=== PATIENT | female | born 1990 | race Caucasian/White ===

== ENCOUNTER → 2017-11-14 19:18 | Outpatient (CLI) | payer SELFPAY | PROVIDERS: Visit Provider Obstetrics & Gynecology | DX: L02.91 Cutaneous abscess, unspecified (principal) | CPT/HCPCS: 87070; 87075; 87077; 87186; 87205 ==

== ENCOUNTER 2025-02-12 18:28 | Emergency (ER) | payer SELFPAY ==
[2025-02-12 18:29] VITALS: BP 120/72; PULSE 71; RESP 16; TEMP 36.8; O2SAT 99; BMI 31.6
[2025-02-12 19:04] VITALS: O2SAT 98
--- NOTE | 2025-02-12 19:04 | EKG12_ITS ---
Test Reason : CP Blood Pressure : */* mmHG Vent. Rate : 66 BPM Atrial Rate : 66 BPM P-R Int : 152 ms QRS Dur : 82 ms QT Int : 370 ms P-R-T Axes : 43 3 24 degrees QTcB Int : 387 ms Normal sinus rhythm Normal ECG Confirmed by ERICKSON DUBOIS, DAT ([id number]), slot editor NEGRA TOUSSAINT ([id number]) on 02/13/2025 1:26:55 PM Referred By: Leonel Horner Confirmed By: DAT ALMENDRAEZ MD
--- NOTE | 2025-02-12 19:10 | RAD_ITS ---
PROCEDURE: CHEST PA AND LATERAL 02/12/2025 REASON FOR EXAM: CHEST PAIN TECHNIQUE: Frontal and lateral views of the chest. FINDINGS: Hardware: None Heart: The heart size is normal. Mediastinum: The mediastinal contour is unremarkable. Lungs: The lungs are clear. Bones: The bones are unremarkable. RAD/Chest PA and Lateral IMPRESSION: NO ACUTE FINDINGS. Reading Location: [id number]
--- NOTE | 2025-02-12 19:20 | EX.ED.DYSGE1 ---
HPI History of Present Illness Chief Complaint: Chest Pain Narrative Narrative: Patient is a 35-year-old female past medical history anxiety, depression who presents to the emergency department chief complaint chest pain. Patient states that she was sitting reading a book when all of a sudden she developed severe chest pain rating to her back prompting her to call EMS to have her brought here for further evaluation management. Patient states that this has been going off and on for the past month but not to this extent. Patient denies recent travel history denies use of blood clots. [facility] Medical History Anxiety and depression Home Medications ?Medication ?Instructions ?Recorded ?Last Taken ?Type escitalopram oxalate 20 mg tablet 20 mg PO DAILY 02/12/25 02/12/25 History (Lexapro) Allergy/AdvReac Type Severity Reaction Status Date / Time pineapple Allergy Severe Hives Verified 02/12/25 18:35 Penicillins (PCN) Allergy Hives Verified 02/12/25 18:35 Family History Mother Breast cancer Social History household members: spouse, family and children housing: house Smoking Status: Never smoker alcohol intake: current details: social substance use type: does not use caffeine: Yes frequency: 5-6 times per week seatbelt use: always do you feel safe at home: Yes additional social history: - Unemployed [employer] [facility] ROS ED ROS Narrative Constitutional: Denies fever, chills, headaches Cardiovascular: Complains of chest pain as noted above Respiratory: Denies coughing wheezing shortness of breath Abdomen: Denies abdominal pain nausea vomit diarrhea : Denies urinary symptoms Neurological: Denies numbness, weakness, tingling Musculoskeletal: Complains of chest pain rating to her back Skin: Denies rashes or lesions EXAM Physical Exam Narrative Exam Narrative: General: Patient lying in bed rest comfortably did not appear to be in acute distress Head: Atraumatic, normocephalic Eyes: PERRL bilaterally, EOMI bilateral, no conjunctival injection noted Neck: Soft, supple, trachea midline Cardiovascular: Regular rate and rhythm Respiratory: Clear to auscultation bilaterally Abdomen: Soft, nondistended, nontender to palpation Extremities: Radial pulses +2/4 in the bilateral extremities, +5/5 strength noted in the bilateral upper and lower extremities, no pedal edema exam Neurological: Patient following commands knew that she was at [facility] the year is 2024. Sensation grossly intact Skin: Warm, dry, intact no rashes or lesions noted Const Vital Signs: 02/12/25 18:29 02/12/25 18:32 02/12/25 19:04 Temperature 98.3 F Temperature Source Temporal Pulse Rate 71 Respiratory Rate 16 Respiratory Effort Normal Non-Labored Blood Pressure 120/72 Blood Pressure Mean 88 Pulse Ox 99 98 Oxygen Delivery Method Room Air Room Air 02/12/25 19:28 02/12/25 20:00 02/12/25 21:00 Temperature Temperature Source Pulse Rate 69 78 74 Respiratory Rate 19 H 17 17 Respiratory Effort Blood Pressure 93/71 97/63 100/64 Blood Pressure Mean 78 74 76 Pulse Ox 98 98 98 Oxygen Delivery Method Room Air Room Air Room Air MDM MDM MDM Narrative Medical decision making narrative: Patient is a 35-year-old female who presented to the emergency department with a chief complaint of sudden onset of chest pain while reading a book. On the differential diagnosis includes but not limited to ACS, pneumonia, pneumothorax. Once workup is obtained reviewed she will be reevaluated. [place] Score (Revised) for Pulmonary Embolism from [email or web address] on 02/12/2025 All calculations should be rechecked by clinician prior to use RESULT SUMMARY: 0 points Low risk group: 7-9% incidence of PE from several studies. INPUTS: Age >65 ?> 0 = No Previous DVT or PE ?> 0 = No Surgery (under general anesthesia) or lower limb fracture in past month ?> 0 = No Active malignant condition ?> 0 = No Unilateral lower limb pain ?> 0 = No Hemoptysis ?> 0 = No Heart rate ?> 0 = < 75 Pain on lower limb palpation and unilateral edema ?> 0 = No Patient CBC was reviewed showed no evidence leukocytosis white blood count normal 9.4, he was stable 13.4, platelet count was noted be normal at 290. Patient sodium was 140, potassium normal 3.8, creatinine normal at 0.89. Patient's troponin was normal at less than 6 with a delta troponin obtained less than 6. Patient's EKG was reviewed as well which showed sinus rhythm with a rate of 66 bpm. Patient's test was negative. Patient chest x-ray reviewed by myself by radiology which showed no acute cardiopulmonary processes. Reevaluation patient she is still feeling back to her baseline and would like to go home at this point in time. She is vies follow-up with her primary care physician outpatient setting return with worsening symptoms or concerns. She is agreeable this plan all question concerns answered she was discharged home in stable condition. Lab Data Labs: Laboratory Results - last 24 hr 02/12/25 02/12/25 18:32 20:53 WBC 9.4 RBC 4.37 Hgb 13.4 Hct 38.5 MCV 88.1 MCH 30.7 MCHC 34.8 RDW Std Deviation 39.6 RDW Coeff of Ernesto 12.2 Plt Count 290 MPV 9.4 Immature Gran % (Auto) 0.100 Neut % (Auto) 55.5 Lymph % (Auto) 31.8 [place] % (Auto) 6.8 Eos % (Auto) 5.1 H Baso % (Auto) 0.7 Absolute Neuts (auto) 5.2 Absolute Lymphs (auto) 2.97 Nucleated RBC % 0 Sodium 140 Potassium 3.8 Chloride 104 Carbon Dioxide 23.3 Anion Gap 12 BUN 12 Creatinine 0.89 Estim Creat Clear Calc 84.84 Est GFR (MDRD) Non-Af 86 BUN/Creatinine Ratio 13.2 Glucose 87 Calcium 9.3 Troponin T High Sens < 6 Troponin T Hi Sens 2 Hr < 6 Serum , Qual NEGATIVE Radiography Diagnostic Testing: Clinical Impression(s) from Imaging Studies Chest X-Ray 02/12/25 19:10 IMPRESSION: NO ACUTE FINDINGS. Reading [facility] Dis[facility] Triage Chief Complaint: Chest Pain ED Provider: Leonel Horner Dx/Rx/DC Orders Clinical Impression: Chest pain Prescriptions: No Action escitalopram oxalate [Lexapro] 20 mg tablet 20 mg PO DAILY Primary Care Provider: Care Physician,No Primary Referrals: Care Physician,No Primary [Primary Care Provider] - Bennett Vickers MD [Med Staff - Windows Application Administrator] - Activity Restrictions/Additional Instructions: Your x-ray was normal your blood work did not show any acute findings. Follow-up with a primary care physician return with worsening symptoms or any other concerns. Print Language: [place] Disposition Disposition: Home, Self Care
[2025-02-12 19:28] VITALS: BP 93/71; PULSE 69; RESP 19; O2SAT 98
[2025-02-12 19:33] LABS: Absolute Lymphocyte Count 2.97 X10^3/uL (0.83-4.51); Absolute Neutrophil Count 5.2 X10^3/uL (2.0-7.7); Basophil# 0.07 X10^3/uL; Basophil% 0.7 % (0-1); Eosinophil# 0.48 X10^3/uL; Eosinophils% 5.1 % (0-5); Hematocrit 38.5 % (37-47); Hemoglobin 13.4 g/dL (12.0-15.0); Lymphocyte # 2.97 X10^3/ul (0.83-4.51); Lymphocyte % 31.8 % (19-41); Mean Corp Hgb Conc 34.8 g/dL (32-36); Mean Corpuscular Hgb 30.7 pg (27.0-32.0); Mean Corpuscular Volume 88.1 fL (81-99); Mean Platelet Vol. 9.4 fl (6.2-12.0); Monocyte# 0.64 X10^3/uL; Monocyte% 6.8 % (0-10); NRBC Flagged by Analyzer 0 % (0-5); Neutrophil # 5.18 X10^3/uL (2.7-7.7); Neutrophil % 55.5 % (47-70); Platelet Count 290 K/mm3 (150-450); RBC Distribution Width CV 12.2 % (11.6-14.6); RBC Distribution Width SD 39.6 fl (35.1-43.9); Red Blood Count 4.37 M/mm3 (4.2-5.4); White Blood Count 9.4 K/mm3 (4.4-11.0)
[2025-02-12 19:43] LABS: Internal QC Validated? YES +Cl - CLEAR BKGD; Pregnancy, Serum, hCG Quali. NEGATIVE Negative; Record Kit Lot#, Serum Preg. 929381
[2025-02-12 20:00] VITALS: BP 97/63; PULSE 78; RESP 17; O2SAT 98
[2025-02-12 20:23] LABS: Anion Gap 12 (5-15); BUN 12 mg/dL (4-19); BUN/Creat Ratio 13.2 RATIO (10-20); Calcium,Total 9.3 mg/dL (7.6-11.0); Carbon Dioxide 23.3 mmol/L (21.0-32.0); Chloride 104 mmol/L (98-108); Creatinine, Serum 0.89 mg/dL (0.70-1.20); EST Glomerular Filtration Rate 86 (>60); Estimated Creatinine Clearance 84.84 ml/min (50-250); Glucose 87 mg/dL (70-99); Potassium 3.8 mmol/L (3.3-5.1); Sodium Level 140 mmol/L (133-145); Troponin T High Sensitivity < 6 ng/L (<=14)
--- NOTE | 2025-02-12 20:30 | CM.ED ---
Social Work Reason for visit: No PCP Patient confirmed that she does not currently have a PCP. [facility] provider list given to patient. No further needs identified at this time. Chioma Johnson, CHART READER, COREMAKER
[2025-02-12 21:00] VITALS: BP 100/64; PULSE 74; RESP 17; O2SAT 98
[2025-02-12 21:37] LABS: Troponin T High Sens 2 HR < 6 ng/L (<=14)
[2025-02-12 22:00] VITALS: BP 92/56; PULSE 68; RESP 16; TEMP 36.6; O2SAT 97
== END 2025-02-12 22:04 | disposition home or self-care (01) ==
PROVIDERS: Emergency Provider Emergency Medicine; Referring Provider Emergency Medicine; Visit Provider Emergency Medicine
DX: R07.9 Chest pain, unspecified (principal)
CPT/HCPCS: 71046; 80048; 84484; 84703; 85025; 93005; 99285; A4216